=== PATIENT | female | born 1955 | race Caucasian/White ===

== ENCOUNTER → 2023-12-23 12:46 | Outpatient (BNVA) | payer MEDICARE, OTHER, SELFPAY | PROVIDERS: PCP Family Medicine; Visit Provider Podiatrist Foot & Ankle Surgery | DX: L84 Corns and callosities | CPT/HCPCS: 99203 ==

== ENCOUNTER → 2024-01-07 13:06 | Outpatient (BNVA) | payer MEDICARE, OTHER, SELFPAY | PROVIDERS: PCP Family Medicine; Visit Provider Podiatrist Foot & Ankle Surgery | DX: L84 Corns and callosities; Q82.8 Other specified congenital malformations of skin | CPT/HCPCS: 17110 ==

== ENCOUNTER → 2024-01-21 13:04 | Outpatient (BNVA) | payer MEDICARE, OTHER, SELFPAY | PROVIDERS: PCP Family Medicine; Visit Provider Podiatrist Foot & Ankle Surgery | DX: L84 Corns and callosities; Q82.8 Other specified congenital malformations of skin | CPT/HCPCS: 99213 ==

== ENCOUNTER → 2024-10-13 15:19 | Outpatient (BNVA) | payer MEDICARE, OTHER, SELFPAY | PROVIDERS: PCP Family Medicine; Visit Provider Podiatrist Foot & Ankle Surgery | DX: L84 Corns and callosities (principal); Q82.8 Other specified congenital malformations of skin | CPT/HCPCS: 17110; 99213 ==

== ENCOUNTER → 2024-11-09 08:01 | Outpatient (BNVA) | payer MEDICARE, OTHER, SELFPAY | PROVIDERS: PCP Family Medicine; Visit Provider Podiatrist Foot & Ankle Surgery | DX: L60.0 Ingrowing nail (principal); L60.3 Nail dystrophy; M20.41 Other hammer toe(s) (acquired), right foot | CPT/HCPCS: 11750; 99214 ==

== ENCOUNTER → 2024-11-23 11:03 | Outpatient (BNVA) | payer MEDICARE, OTHER, SELFPAY | PROVIDERS: PCP Family Medicine; Visit Provider Podiatrist Foot & Ankle Surgery | DX: L60.3 Nail dystrophy (principal); M20.41 Other hammer toe(s) (acquired), right foot | CPT/HCPCS: 99214 ==

== ENCOUNTER 2024-12-06 07:15 | Day surgery (SDC) | payer MEDICARE, OTHER, SELFPAY ==
[2024-12-06] VITALS (7 sets, daily range): BP systolic 107–179; BP diastolic 65–92; PULSE 69–83; RESP 16–20; TEMP 36.1–36.8; O2SAT 97–100; BMI 27.1
--- NOTE | 2024-12-06 08:30 | W.PM.OPSUD ---
Surgery/Procedure H&P Update DATE OF PROCEDURE: December 06, 2024 DATE H&P PERFORMED: 11/23/24 H&P UPDATE INFORMATION: I have reviewed H&P completed within last 30 days, I have examined patient prior to procedure, No changes to prior documentation, H&P is in [facility] EMR on date indicated and Risks and benefits of the procedure reviewed PREOP DIAGNOSIS: Right foot fifth digit hammertoe PLANNED PROCEDURE: Operation Date: 12/06/24 08:55 Proposed Procedures p Right foot fifth digit derotational arthroplasty(Right) - Santos Joe DPM
[2024-12-06] MEDS: ceFAZolin 2,000 mg SDV 2000 MG IVP (08:45)
[2024-12-06] MEDS: BUPivacaine 0.5% INJ 30 mL XX (08:52)
--- NOTE | 2024-12-06 09:17 | PM.OP ---
Operative Report Date of procedure: December 06, 2024 Surgeon: Santos Joe DPM Procedure: Date of procedure: 12/06/2024 Pre-op diagnosis: Right foot fifth digit hammertoe Post-op diagnosis: Same Post-op findings: Hammertoe right foot fifth digit Procedure done: Derotational arthroplasty right foot fifth digit CPT 28249 Implants: None Specimens removed: None Surgeon: Dr. Santos Joe DPM Lockstitch Collar Setter: Ivette Estimated blood loss: 5 cc Tourniquet time: 11 minutes Complications: None Patient is a 69-year-old female that has a history of right foot fifth digit hammertoe. The patient has had the aforementioned chief complaint for some time. Conservative treatment measures have been attempted and the patient has opted for surgical intervention at this time. A lengthy discussion regarding the procedure, including risks and complications has been had with the patient and is noted in the recent clinic note. Written and verbal consent have been obtained. All patient questions have been answered to the patient?s satisfaction. No written or verbal guarantees have been given or implied. The patient has been NPO since midnight. The history has been reviewed and the history and physical is current. The signed consent was confirmed and placed in the patient chart. Patient imaging has been reviewed and is consistent with the diagnosis. Under mild sedation, the patient was brought into the operating room and placed on the table in the supine position. IV antibiotics were given by the anesthesia team as preoperative surgical prophylaxis. IV sedation was then performed by the anesthesiateam. A pneumatic tourniquet was then placed about the right ankle. The operative extremity was then prepped and draped in the usual fashion. The extremity was then elevated and exsanguinated before the tourniquet was inflated to 250 mmHg. After inflation, the following procedure was then performed. Attention was directed to the right foot where a 3 cm 3-1 elliptical incision was made overlying the proximal interphalangeal joint using a #15 blade. Dissection was carried down through subcutaneous the superficial fascia to the level of the extensor tendon which was transected transversely at the level of the proximal interphalangeal joint. Dissection was carried out to expose the head of the proximal phalanx. Sagittal bone saw was then used to remove the head of the proximal phalanx. This was passed from the operative field. The site was then irrigated with copious amounts of sterile saline before attention was directed to closure. Extensor tendon was reapproximated using 4-0 Vicryl followed by skin closure using 4-0 nylon in simple interrupted fashion. The fifth digit was noted to sit in a more rectus position. Site was dressed with Xeroform, 4 x 4 gauze, Kerlix, Castro bandage. Patient was placed in a cam boot. The patient tolerated the procedure and anesthesia well and without complication. The patient was transported from the operating room to the recovery room with vital signs stable and vascular status intact to all digits of the right foot. The patient was given both written and verbal instructions to remain weightbearing as tolerated to the operative extremity, to keep dressings/splint clean, dry and intact and to take pain medication as directed. The patient will follow-up in the outpatient setting at their scheduled appointment. The patient was discharged with my personal number and was instructed to call if any questions or issues should arise. They were discharged home once anesthesia criteria was met.
--- NOTE | 2024-12-06 10:15 | ANE.PACU2 ---
Inpatient post-anesthesia follow up: Airway intact: Yes Vital signs: Temperature 97.0 F Pulse Rate 69 Respiratory Rate 16 Blood Pressure 110/76 Pulse Oximetry 98 Oxygen Delivery Me thod Room Air Oxygen Flow Rate 8 Fraction of Inspir ed Oxygen Hydration adequate: Yes Nausea and vomiting: No Pain level: 1 Mental status: Baseline
== END 2024-12-06 10:15 | disposition home or self-care (01) ==
PROVIDERS: PCP Family Medicine; Visit Provider Podiatrist Foot & Ankle Surgery
PROC: (CPT 28285; principal; 2024-12-06 08:45)
DX: M20.41 Other hammer toe(s) (acquired), right foot (principal); L60.3 Nail dystrophy
CPT/HCPCS: 28285; J0690; J2704; J3010; J3490; J7030

== ENCOUNTER → 2024-12-20 14:56 | Outpatient (BNVA) | payer MEDICARE, OTHER, SELFPAY | PROVIDERS: PCP Family Medicine; Visit Provider Podiatrist Foot & Ankle Surgery | DX: L60.3 Nail dystrophy (principal); M20.41 Other hammer toe(s) (acquired), right foot | CPT/HCPCS: 99024 ==

== ENCOUNTER → 2025-01-06 10:17 | Outpatient (BNVA) | payer MEDICARE, OTHER, SELFPAY | PROVIDERS: PCP Family Medicine; Visit Provider Podiatrist Foot & Ankle Surgery | DX: L60.3 Nail dystrophy (principal); M20.41 Other hammer toe(s) (acquired), right foot; Z98.890 Other specified postprocedural states | CPT/HCPCS: 99024 ==

== ENCOUNTER → 2025-03-01 10:04 | Outpatient (BNVA) | payer MEDICARE, OTHER, SELFPAY | PROVIDERS: PCP Family Medicine; Visit Provider Podiatrist Foot & Ankle Surgery | DX: L60.3 Nail dystrophy (principal); M20.41 Other hammer toe(s) (acquired), right foot | CPT/HCPCS: 99024 ==

== ENCOUNTER → 2025-04-28 09:52 | Outpatient (BNVA) | payer MEDICARE, OTHER, SELFPAY | PROVIDERS: PCP Family Medicine; Visit Provider Podiatrist Foot & Ankle Surgery | DX: M25.572 Pain in left ankle and joints of left foot (principal); L60.3 Nail dystrophy; M20.41 Other hammer toe(s) (acquired), right foot | CPT/HCPCS: 99214 ==